=== PATIENT | female | born 2000 | race Caucasian/White ===

== ENCOUNTER 2024-10-28 07:10 | Outpatient (CLI) | payer BC, SELFPAY ==
--- NOTE | 2024-10-28 07:15 | CRLHL7_ITS ---
For Patients: As a result of the Cures Act, medical imaging exams and procedure reports are released immediately into your electronic medical record. You may view this report before your referring provider. If you have questions, please contact your health care provider. OB ULTRASOUND INDICATION: Dating and viability. TECHNIQUE: Real time grayscale imaging of the fetus was performed. Transvaginal. LMP: 09/02/2024. LILIA by LMP: 06/09/2025. GA: 8 w, 0 d. Previous US: No. CRL: 0.8 cm. 6 w 5 d. LILIA: 06/18/2025. FHR: 125 BPM. Gestational sac: 2.1 cm. Appears within normal limits. Yolk sac: 4.2 mm. Appears within normal limits. Right ovary: 4.4 x 2.4 x 2.2 cm. CL. Left ovary: 2.9 x 2.1 x 2.6 cm. IMPRESSION: 1. Single living intrauterine measuring 6 weeks 5 days and sonographic due date 06/18/2025. 2. Subchorionic hemorrhage measures 1.3 x 0.6 x 1.0 cm. 3. Corpus luteal cyst right ovary measures 2.2 x 1.3 x 1.3 cm. Simple right paraovarian cyst measures 1.7 x 1.1 x 1.4 cm. Stephan Davenport M.D. Diagnostic Radiologist [email or web address]/Dictated by: Stephan Davenport MD @ 10/28/2024 11:38:00 AM (Electronically Signed)
== END 2024-10-28 07:11 | disposition home or self-care (01) ==
LOC: US 07:13
PROVIDERS: PCP Nurse Practitioner Family; Visit Provider Advanced Practice Midwife
DX: Z34.91 Encounter for supervision of normal pregnancy, unspecified, first trimester (principal); O20.9 Hemorrhage in early pregnancy, unspecified; O34.81 Maternal care for other abnormalities of pelvic organs, first trimester; N83.11 Corpus luteum cyst of right ovary; Z3A.08 8 weeks gestation of pregnancy
CPT/HCPCS: 76817; 83021; 86592; 86703; 86704; 86706; 86762; 86787; 86803; 86850; 86900; 86901; 87086; 87340; 87491; 87591; 88142

== ENCOUNTER 2024-11-24 09:26 | Outpatient (CLI) | payer BC, SELFPAY | END 2024-11-24 09:27 | disposition home or self-care (01) | PROVIDERS: PCP Nurse Practitioner Family; Visit Provider Advanced Practice Midwife | DX: Z34.01 Encounter for supervision of normal first pregnancy, first trimester (principal) | CPT/HCPCS: 86704; 86706; 87340 ==

== ENCOUNTER 2025-01-20 09:00 | Outpatient (CLI) | payer BC, SELFPAY ==
--- NOTE | 2025-01-20 09:15 | CRLHL7_ITS ---
For Patients: As a result of the Century Cures Act, medical imaging exams and procedure reports are released immediately into your electronic medical record. You may view this report before your referring provider. If you have questions, please contact your health care provider. OB ULTRASOUND GREATER THAN 14 WEEKS, 01/20/2025 CLINICAL HISTORY: Basic anatomy survey. COMPARISON: 10/28/2024. TECHNIQUE: Real time cerda scale imaging of the fetus was performed. Transabdominal imaging performed. FINDINGS: LMP: 09/02/2024. LILIA by LMP: 06/09/2025. LILIA by US: 06/18/2025. GA: 18 weeks 5 days. Position: Breech. Cervix: Visualized. Technique: TA. Length of closed cervix: 3.6. Placenta/Cord: Placenta Position: Anterior. Technique: TA. Placenta tip to internal OS: 4.5 cm. Umbilical Cord: 3 vessel cord. Placental Insertion: Central. Amniotic Fluid: 6 cm SDP. OBSERVED STRUCTURES Calvarium/Spine: Cerebellum: 1.9 cm, 19 weeks 3 days Cisterna Magna: 4.7 mm Nuchal Fold: 3.7 mm Lateral Ventricle: 7.4 mm CSP Choroid Plexus Midline Falx Spine Abdomen: Stomach Abd Cord Insert Urinary Bladder Kidneys Diaphragm Face: Nose/Lips Orbital view Profile Limbs: Upper extremities Lower extremities Hands Feet Vascular: 4 Ch Heart LVOT RVOT 3VV 3VTV BIOMETRY: BPD: 4.3 cm, 18 weeks 6 days. 60% HC: 16.3 cm, 19 weeks 0 days. 59% AC: 1.4 cm, 19 weeks 3 days. 70% FL: 2.7 cm, 18 weeks 1 day. 24% FL/AC: 19.12% HC/AC Ratio: 1.16. Heart Rate: 142 bpm. Age by this US: 19 weeks 0 days. LILIA by this US: 06/16/2025. EFW: 361 grams, 0 lb 0 oz. Percentile by LILIA: 54% IMPRESSION: 1. Concordance of clinical and sonographic dating. 2. Normal anatomic survey. Stephan Davenport M.D. Diagnostic Radiologist [email or web address] Ally Transcribed: 1:03 pm DW/Dictated by: Stephan Davenport MD @ 01/20/2025 12:33:00 PM (Electronically Signed)
== END 2025-01-20 09:01 | disposition home or self-care (01) ==
LOC: US 09:00
PROVIDERS: PCP Nurse Practitioner Family; Visit Provider Advanced Practice Midwife
DX: Z34.02 Encounter for supervision of normal first pregnancy, second trimester (principal); Z3A.19 19 weeks gestation of pregnancy
CPT/HCPCS: 76805

== ENCOUNTER 2025-01-24 16:32 | Emergency (ER) | payer BC, SELFPAY ==
--- OUTSIDE RECORDS SUMMARY | 2025-01-24 16:34 | XMS_ITS ---
Author Organization [facility] Source Produ ction (ClinicalSummary Clone) Address Unknown Care Team Providers Care Medical Office Manager Name Role Phone Unavailable Primary Care Physician Unavailab le Results * [UNITY] ANEUPLOIDY NIPT Performed by: [employer] Component Value Range Date Fraction 6.1% 12/03/2024 03 :10 am UTC Sex Chromosome Aneuploidy NOT DETECTED 03:10 am UTC Monosomy X LOW RISK <1 in 10,000 2024 03:10 am UTC Trisomy 13 LOW RISK <1 in 10,000 2024 03:10 am UTC Trisomy 18 LOW RISK <1 in 10,000 2024 03:10 am UTC Trisomy 21 LOW RISK <1 in 10,000 2024 03:10 am UTC Sex FEMALE 12/03/2024 03:1 0 am UTC Gestation MEZA 12/04/19 03:10 am [place] For detailed report, see PDF See PDF 12/03/2024 03:10 am UTC 12/03/2024 03:1 0 am [place] Social History Observation Value Start Date End Date
--- OUTSIDE RECORDS SUMMARY | 2025-01-24 16:34 | XMS_ITS ---
Author Organization [facility] Source Produ ction (ClinicalSummary Clone) Address Unknown Care Team Providers Care Expressive Art Therapist Name Role Phone Unavailable Primary Care Physician Unavailab le Results * [UNITY] CARRIER SCREEN Performed by: [employer] Component Value Range Date Sickle Cell Disease/Beta-Thalassemia/Hemo globinopathies carrier screen NEGATIVE 12/09/2024 04:56 am UT Alpha-Thalassemia carrier screen NEGATIVE 12/09/2024 04:56 am [place] Cystic Fibrosis carrier screen NEGATIVE 12/09/2024 04:56 am [place] Spinal Muscular Atrophy carrier screen NEGATIVE 2 SMN1 copies, SNP not present 12/09/2024 04:56 am [place] For detailed report, see PDF See PDF 12/09/2024 04:56 am [place] 12/09/2024 04:5 6 am [facility] Social History Observation Value Start Date End Date
[2025-01-24 16:39] VITALS: BP 132/65; PULSE 117; RESP 20; TEMP 36.6; O2SAT 99; BMI 23.2
--- NOTE | 2025-01-24 16:59 | ED_ITS ---
HPI - SOB/Dyspnea General Chief Complaint: Shortness of Breath/Dyspnea Stated Complaint: shortness of breath since last night Time Seen by Provider: 01/24/25 16:40 History of Present Illness HPI Narrative: This 24-year-old female is about 20 weeks with her 1st . Everything has been going well. She states that she was laying on her left side last evening and felt her heart rate increase rather suddenly and she felt some shortness of breath. She did not have any pain. Today she feels little short of breath but was able to carry out her normal functions of the day. She did call in and somewhat advised her to come to the emergency department. She does not report any pain and does not have any unilateral limb swelling. She does not have any prior history of blood clot. She denies any fevers or signs of infection. She does report some history of anxiety symptoms and states that at times her heart rate has been increased. Related Data Home Medications ?Medication ?Instructions ?Recorded ?Confirmed vits 168-iron 27 mg-folic cap PO 10/28/2404/05 acid 800 mcg-omega3 235 mg capsule (One-A-Day -1) pyridoxine (vitamin B6) 10 mg 10 mg PO QDAY 11/24/24 0 01/20/25 tablet Allergies Allergy/AdvReac Type Severity Reaction Status Date / Time No Known Drug Allergies Allergy Verified 12/22/24 09:12 Review of Systems Status of ROS: Reports: 10 or more systems reviewed and unremarkable except as noted in History and below Narrative: Constitutional: No fevers, no weight gain or loss. Eyes: No discharge. No vision changes. HENT: No congestion, no sore throat, no ear pain. Cardiovascular: No chest pain . Increased heart rate. Respiratory: No wheezes, no cough. She feels like it is harder to take a deep breath. Gastrointestinal: No abdominal pain, no vomiting, no diarrhea. Genitourinary: No dysuria, no hematuria. Musculoskeletal: Normal range of motion. Skin: No rashes, no pruritis. Neurological: No dizziness, weakness, sensory change, speech change. Endo/Heme/Allergies: No bruising or bleeding. No polydipsia. Pysch: no suicidality, no anxiety, no insomnia. All other systems reviewed and are negative. [facility] Surgical History (Updated 10/28/24 @ 09:24 by Pao Carvajal CNM) Fence teeth extracted ?K08.409 - Partial loss of teeth, unspecified cause, unspecified class (ICD-1 0) Family History (Updated 10/28/24 @ 09:25 by Pao Carvajal CNM) Sister Anorexia Father Prostate cancer Cancer of kidney Social History (Updated 10/28/24 @ 10:51 by Pao Carvajal CNM) Narrative: Education: Associate degree? ? Work: dental medical office receptionist assistant? ? Partner: Jurgen? works as a boyd Lives with: Jurgen? ? Pets: dog and cat, Jurgen changes litter box? ? Abuse: Denies past ? Unable to assess current, partner present? ? Special Diet: Denies? ? Ok with a blood transfusion: yes? ? Culture or voodoo beliefs: denies? RISK FACTORS? ? Exercise Times/wk: Walking 30 minutes a day? ? Depression/Anxiety: both? ? Previous Treatments on Lexapro for about a month, had trouble taking regularly ? Therapy: some in past nothing current HANSEL: 11 PHQ 9: 3? ? Seat Belt Use: Routinely ? Smoking: Denies past/present? ? Alcohol/day: Denies while ? maybe once a month when not ? Caffeine: one cup a day? ? Drug Use: Denies past/present? What is your current living situation?: I presently have a place to live Problems where you live: no known problems In the past 12 months, utilities in danger of being shut off: no In past 12 months, lack of transportation kept you from medical appts, meetings, work, or getting things needed for daily living: no In the past 12 mos, have been you worried that your food would run out before you had money to buy more?: never true In the past 12 mos, the food you bought just didn't last and you didn't have money to buy more?: never true How often does anyone, including family, friends and others, physically hurt you : never How often does anyone, including family, friends and others, insult or talk down to you: never How often does anyone, including family, friends and others, threaten you with harm: never How often does anyone, including family, friends and others, scream or curse at you: never Exam Narrative: Exam Narrative: Constitutional: Well-developed, well-nourished, no acute distress. HEENT: Normocephalic, atraumatic. Neck: Normal range of motion. Nontender. Supple. Heart: Regular. No murmurs. tachycardia. Intact distal pulses. Lungs: Clear to auscultation. No chest discomfort. No wheezes, rhonchi, or rales. Abdomen: Normal bowel sounds. Gravid At about 20 weeks. Nontender. No rebound tenderness. Genitalia: Deferred. Back: No midline tenderness. Normal range of motion. Extremities: Normal range of motion. No injury. Skin: Intact. No rash. Warm. No erythema or pallor. Neurologic: No altered sensation. No weakness. Alert and oriented. Psychiatric: No suicidality. No anxiety or depression. No insomnia. Nursing notes and vitals signs are reviewed. Const: Vital Signs, click to edit/add: Vital Signs - 24 hr 01/24/25 16:39 Temperature 97.9 F Pulse Rate [Pulse Oximeter] 117 H Respiratory Rate 20 Blood Pressure [Ri ght Upper Arm] 132/65 Pulse Oximetry 99 Oxygen Delivery Me thod Room Air Course Vital Signs Vital signs: Initial Vital Signs Temperature 97.9 F 01/24/25 16:39 Temperature Source Temporal Artery Scan 01/24/25 16:39 Pulse Rate 117 H 01/24/25 16:39 Respiratory Rate 20 01/24/25 16:39 Blood Pressure 132/65 01/24/25 16:39 Blood Pressure Mean 87 01/24/25 16:39 Blood Pressure Position Sitting 01/24/25 16:39 Pulse Oximetry 99 01/24/25 16:39 Oxygen Delivery Method Room Air 01/24/25 16:39 Vital Signs Temperature 97.9 F 01/24/25 16:39 Pulse Rate 117 H 01/24/25 16:39 Respiratory Rate 20 01/24/25 16:39 Blood Pressure 132/65 01/24/25 16:39 Pulse Oximetry 99 01/24/25 16:39 Oxygen Delivery Method Room Air 01/24/25 16:39 Temperature 97.9 F 01/24/25 16:39 Pulse Rate 117 H 01/24/25 16:39 Respiratory Rate 20 01/24/25 16:39 Blood Pressure 132/65 01/24/25 16:39 Pulse Oximetry 99 01/24/25 16:39 Oxygen Delivery Method Room Air 01/24/25 16:39 MDM - SOB/Dyspnea MDM Narrative Medical decision making narrative: This patient is 20 weeks and was told to come in because she was reporting some palpitations or increased heart rate. She did arrive with some tachycardia and states that she has had symptoms like this in the past. She does not report any chest pain or shortness of breath but feels like she has to work a bit more to take a deeper breath. She arrives with normal vital signs otherwise. I did discuss lab and imaging options. Initially she agreed to have labs checked which I plan to include D-dimer even know it can be elevated in . She does not show any other symptoms of blood clot and has no prior history. Her revised Uvalde score shows low probability. It is a busy Friday and labs were not drawn initially in the patient later declined labs for now. I did do bedside point of care ultrasound and saw normal an anatomy, normal gallbladder and inferior vena cava, normal lungs, and normal heart. The patient is sufficiently reassured and states that she is feeling better. I did describe signs and symptoms that would indicate need for return and re-evaluation. ECG Data Attestation: I personally reviewed and interpreted this ECG as follows: Interpretation: Sinus tachycardia, rate is 105 beats per minute. There are no specific ST or T- wave abnormalities. Discharge Plan Discharge Clinical Impression: Tachycardia, paroxysmal Patient Disposition: Home, Self-Care Condition: Stable Additional Instructions: Continue current plans. Follow up with MD or return if symptoms are persistent or worsening. Prescriptions: No Action One-A-Day -1 27 mg iron- 800 mcg-235 mg capsule PO pyridoxine (vitamin B6) 10 mg tablet 10 mg PO QDAY Follow Up/Referrals: Madeline Simpson [Primary Care Provider, [facility]] Stand Alone Forms: [employer] Info Instructions
== END 2025-01-24 18:42 | disposition home or self-care (01) ==
PROVIDERS: Emergency Provider Emergency Medicine Emergency Medical Services; PCP Nurse Practitioner Family
DX: I47.9 Paroxysmal tachycardia, unspecified (principal); Z3A.20 20 weeks gestation of pregnancy
CPT/HCPCS: 80048; 84484; 85025; 85379; 99284

== ENCOUNTER 2025-02-25 10:09 | Outpatient (CLI) | payer BC, SELFPAY | END 2025-02-25 10:10 | disposition home or self-care (01) | LOC: NFLDREF 10:12 | PROVIDERS: PCP Nurse Practitioner Family; Visit Provider Midwife | DX: N89.8 Other specified noninflammatory disorders of vagina (principal) | CPT/HCPCS: 87086 ==

== ENCOUNTER 2025-03-24 08:27 | Outpatient (CLI) | payer BC, SELFPAY | END 2025-03-24 08:28 | disposition home or self-care (01) | LOC: NFLDREF 03-29 21:14 | PROVIDERS: PCP Nurse Practitioner Family; Referring Provider Nurse Practitioner Family; Visit Provider Midwife | DX: Z34.93 Encounter for supervision of normal pregnancy, unspecified, third trimester (principal) | CPT/HCPCS: 86592 ==

== ENCOUNTER 2025-05-04 10:02 | Outpatient (CLI) | payer BC, SELFPAY | END 2025-05-04 10:03 | disposition home or self-care (01) | LOC: NFLDREF 05-09 10:34 | PROVIDERS: PCP Nurse Practitioner Family; Referring Provider Nurse Practitioner Family; Visit Provider Advanced Practice Midwife | DX: Z34.03 Encounter for supervision of normal first pregnancy, third trimester (principal) | CPT/HCPCS: 82728 ==